=== PATIENT | female | born 1980 | race Caucasian/White ===

== ENCOUNTER 2024-12-23 09:28 | Emergency (ER) | payer SELFPAY ==
[2024-12-23] MEDS ORDERED: Dexamethasone 10 MG/ML VIAL ONE (11:28)
== END 2024-12-23 11:46 | disposition home or self-care (01) ==
LOC: ERS 09:28
DX: U07.1 COVID-19 (principal)
CPT/HCPCS: 71046; 87081; 87426; 87430; 96372; J1100